=== PATIENT | male | born 1955 | race Caucasian/White ===

== ENCOUNTER 2017-11-19 19:14 | Emergency (ER) | payer BC ==
[~2017-11-19] VITALS: Ht 182.9 cm; Wt 79.5 kg
[~2017-11-19 19:14] MED LIST: LACT1CAP65 PO; SIMV10TA6 PO
[2017-11-19 21:06] VITALS: BP 155/88
== END 2017-11-19 21:07 | disposition home or self-care (01) ==
LOC: ER 19:14
DX: M79.662 Pain in left lower leg (principal); M79.89 Other specified soft tissue disorders; E78.00 Pure hypercholesterolemia, unspecified; I10 Essential (primary) hypertension; Z86.718 Personal history of other venous thrombosis and embolism; Z79.899 Other long term (current) drug therapy
CPT/HCPCS: 93971; 99284